=== PATIENT | female | born 1935 | race Caucasian/White ===

== ENCOUNTER 2021-09-18 05:41 | Day surgery (SDC) | payer MEDICARE, BC ==
[2021-09-12 15:12] LABS: BASOPHILS % (AUTO) 0.8 % (0-1); EOSINOPHILS # (AUTO) 0.1 X10'3 (0-0.9); EOSINOPHILS % (AUTO) 2.2 % (0-6); LYMPHOCYTES # (AUTO) 0.7 X10'3 (1.1-4.8); LYMPHOCYTES % (AUTO) 17.3 % (21-51); MEAN CORPUSCULAR HEMOGLOBIN 32.9 PG (27.0-31.0); MEAN CORPUSCULAR HGB CONC 34.2 g/dL (33.0-36.5); MEAN CORPUSCULAR VOLUME 96.3 FL (78-98); MEAN PLATELET VOLUME 7.8 FL (7.4-10.4); MONOCYTES # (AUTO) 0.5 X10'3 (0-0.9); MONOCYTES % (AUTO) 13.1 % (2-12); NEUTROPHILS # (AUTO) 2.5 X10'3 (1.8-7.7); NEUTROPHILS % (AUTO) 66.6 % (42-75); PRE OP HEMATOCRIT 38.7 % (35.0-45.0); PRE OP HEMOGLOBIN 13.2 g/dL (12.0-16.0); PRE OP PLATELET COUNT 192 X10'3 (140-440); RED BLOOD COUNT 4.02 X10'6 (4.20-5.60); RED CELL DISTRIBUTION WIDTH 13.5 % (11.5-14.5)
[2021-09-12 15:39] LABS: ALBUMIN 3.8 G/DL (3.4-5.0); ALBUMIN/GLOBULIN RATIO 1.1 (1.1-1.5); ALKALINE PHOSPHATASE 77 IU/L (46-116); BLOOD UREA NITROGEN 21 MG/DL (7-18); BUN/CREATININE RATIO 28.8 (6.6-38.0); CALCIUM 9.2 MG/DL (8.5-10.1); CHLORIDE 103 MMOL/L (99-107); CREATININE 0.73 MG/DL (0.40-0.90); PRE OP ALT 30 U/L (30-65); PRE OP ANION GAP 11 (8-16); PRE OP AST 25 U/L (10-37); PRE OP BILIRUB, TOTAL 0.3 MG/DL (0.0-1.0); PRE OP GLUCOSE 103 MG/DL (70-104); PRE OP POTASSIUM 3.4 MMOL/L (3.4-5.1); PRE OP SODIUM 140 MMOL/L (135-145); TOTAL CARBON DIOXIDE 25.9 MMOL/L (24-32); TOTAL PROTEIN 7.2 G/DL (6.4-8.2); eGFR 76 ML/MIN
[2021-09-18] VITALS (10 sets, daily range): BP systolic 114–138; BP diastolic 54–63
[~2021-09-18] VITALS: Ht 160 cm; Wt 74.6 kg
[~2021-09-18 05:41] MED LIST: ACET-1025 PO; ALPR0.255 PO; DOCU-148 PO; DOCUMENT DATE & TIME OF BETA-BLOCKER PO ONE; ESTR10TA9 VG; FLUC50TA PO; HYDR-3972 PO; LANS30CA56 PO; META-25 PO; METO-395 PO; OSC500T PO; ROSU20TA2 PO; TRIA1TAB3 PO; ZOLP5TAB8 PO; cefazolin/dext.iso 2gm/50ml IV ONE; famotidine 20mg tablet PO ONE; ringers solution, lacted 1,000 ML IV SCH
[2021-09-18] MEDS ORDERED: BUPIVAcaine 0.5% inj/PF 30 ML ONE (07:05)
[2021-09-18] MEDS ORDERED: morphine 2 MG/ML inj. syringe IV PRN (07:15)
[2021-09-18] MEDS ORDERED: fentaNYL/PF 50MCG/1 ML 2ML syringe IV PRN ×2 (07:15)
[2021-09-18] MEDS ORDERED: morphine 4 MG/ML inj SYRINge IV PRN (07:15)
[2021-09-18] MEDS ORDERED: ringers solution, lacted 1,000 ML IV SCH (07:15)
[2021-09-18] MEDS ORDERED: ondansetron/PF 4mg/2ml inj IV PRN (07:15)
[2021-09-18] MEDS ORDERED: labetalol 20mg/4ml (5mg/ml) syringe IV PRN (07:15)
[2021-09-18] MEDS ORDERED: hydrALAZINE 20mg/ml inj. IV PRN (07:15)
[2021-09-18] MEDS ORDERED: BUPIVAcaine 0.5% inj/PF 30 ml vial IJ ONE (09:00)
[2021-09-18] MEDS ORDERED: FENTANYL CITRATE/PF 50 MCG/1 ML VIAL ONE (09:18)
[2021-09-18] MEDS ORDERED: midazolam 1 mg/ML 2ml injection ONE (09:19)
--- NOTE | 2021-09-18 09:38 | NUR ---
Received from OR via [facility] IN STABLE CONDITION , accompanied by Anesthesiologist and SURGICAL INSTRUMENT REPAIR SPECIALIST report given by SURGICAL INSTRUMENT REPAIR SPECIALIST AND Anesthesiolgist. Addendum: 09/18/21 at 1052 by Nena Lainez RN Amended: Links added.
--- NOTE | 2021-09-18 11:18 | NUR ---
PATIENT DISCHARGED FROM PACU IN STABLE CONDITION AFTER WRITTEN AND VERBAL DISCHARGE INSTRUCTIONS GIVEN. PATIENT GAVE VERBAL UNDERSTANDING OF INSTRUCTIONS GIVEN. PATIENT LEFT FACILITY VIA WHEELCHAIR WITH RN. Addendum: 09/18/21 at 1139 by Nena Lainez RN Amended: Links added.
== END 2021-09-18 11:18 | disposition home or self-care (01) ==
LOC: PAS 05:41
PROVIDERS: ATTEND Orthopaedic Surgery Hand Surgery
DX: G56.02 Carpal tunnel syndrome, left upper limb (principal); G62.9 Polyneuropathy, unspecified; F41.9 Anxiety disorder, unspecified; F32.9 Major depressive disorder, single episode, unspecified; G89.29 Other chronic pain; Z20.822 Contact with and (suspected) exposure to COVID-19; Z79.899 Other long term (current) drug therapy; Z88.1 Allergy status to other antibiotic agents; Z98.890 Other specified postprocedural states; Z98.1 Arthrodesis status; Z96.641 Presence of right artificial hip joint; Z87.891 Personal history of nicotine dependence; Z72.89 Other problems related to lifestyle; Z85.828 Personal history of other malignant neoplasm of skin; Z80.6 Family history of leukemia
CPT/HCPCS: 36415; 64721; 80053; 82948; 85025; 93005; J0690; J2250; J3010; J7030; J7120; S0020; U0003; U0005; Z7506; Z7512; A4215

== ENCOUNTER 2024-09-29 14:27 | Emergency (ER) | payer MEDICARE, BC ==
[~2024-09-29] VITALS: Ht 160 cm; Wt 63.1 kg
[~2024-09-29 14:27] MED LIST changes: -DOCUMENT DATE & TIME OF BETA-BLOCKER PO ONE; +META-117 PO; -META-25 PO; -cefazolin/dext.iso 2gm/50ml IV ONE; -famotidine 20mg tablet PO ONE; -ringers solution, lacted 1,000 ML IV SCH
[2024-09-29 14:33] VITALS: TEMP 97.6
[2024-09-29] MEDS ORDERED: ALBE200T10 PO (16:56)
[2024-09-29 17:11] VITALS: BP 142/72; PULSE 65; RESP 15; O2SAT 99
== END 2024-09-29 17:18 | disposition home or self-care (01) ==
LOC: ER 14:27
DX: B80 Enterobiasis (principal); F41.9 Anxiety disorder, unspecified; Z88.1 Allergy status to other antibiotic agents; Z79.899 Other long term (current) drug therapy
CPT/HCPCS: 99283